=== PATIENT | female | born 1975 | race Asian ===

== ENCOUNTER 2017-01-06 10:26 | Inpatient (IN) | payer SELFPAY ==
[~2017-01-06] VITALS: Ht 160 cm; Wt 64.9 kg
[2017-01-12] MEDS ORDERED: PROMETHAZINE 25 MG/ML VIAL IVP ONE (00:35)
[2017-01-12] MEDS ORDERED: OXYTOCIN 10 UNITS/ML VIAL IM SCH (00:35)
[2017-01-12] MEDS ORDERED: NALBUPHINE 10 MG/ML AMP IVP PRN (00:35)
[2017-01-12] MEDS ORDERED: OXYTOCIN 20 UNITS in LACTATED RINGERS 1,000 ML IV SCH (00:35)
[2017-01-12] MEDS ORDERED: PREN-380 PO (00:47)
[2017-01-12] MEDS ORDERED: LEVO0.155 PO (00:47)
[2017-01-12 00:53] VITALS: BP 152/87
[2017-01-12] MEDS: LACTATED RINGERS 1,000 ML IV SCH ×4 (01:02→15:53)
[2017-01-12 01:20] LABS: APPEARANCE,URINE CLEAR (CLEAR); BILIRUBIN,URINE NEGATIVE (NEGATIVE); BLOOD, URINE NEGATIVE (NEGATIVE); COLOR,URINE YELLOW (YELLOW); LEUKOCYTE ESTERASE ,URINE NEGATIVE (NEGATIVE); NITRITE, URINE NEGATIVE (NEGATIVE); PH,URINE 6.5 (5.0-9.0); UGLUCOSE NEGATIVE (NEGATIVE)
[2017-01-12 01:22] LABS: BASOPHILS # (AUTO) 0.1 K/uL (0.00-0.22); BASOPHILS % (AUTO) 0.9 % (0.0-2.0); EOSINOPHILS # (AUTO) 0.1 K/uL (0-0.4); HEMOGLOBIN 12.8 g/dL (12.0-16.0); LYMPHOCYTES # (AUTO) 2.3 K/uL (2.5-16.5); MEAN CORPUSCULAR HEMOGLOBIN 31 pg (27-31); MEAN CORPUSCULAR HGB CONC 34 g/dL (33-37); MEAN CORPUSCULAR VOLUME 93 fL (80-94); MONOCYTES # (AUTO) 0.4 K/uL (0.8-1.0); MONOCYTES % (AUTO) 4.7 % (1.7-9.3); NEUTROPHILS # (AUTO) 4.9 K/uL (1.8-7.7); NEUTROPHILS % (AUTO) 63.4 % (42.2-75.2); PLATELET COUNT (AUTO) 155 K/uL (140-450); RED BLOOD CELL COUNT(AUTO) 4.07 MIL/uL (4.20-5.40); RED CELL DISTRIBUTION WIDTH 12.9 % (11.6-13.7); WHITE BLOOD COUNT (AUTO) 7.8 K/uL (4.8-10.8)
[2017-01-12] MEDS ORDERED: MISOPROSTOL 25 MCG TAB ONE (01:24)
[2017-01-12 01:31] LABS: RBC,URINE 0-5 (RARE) /HPF (0-5); WBC,URINE 0-5 (RARE) /HPF (0-5)
[2017-01-12] MEDS ORDERED: MISOPROSTOL 25 MCG TAB VG SCH (04:00)
[2017-01-12] MEDS ORDERED: AMPICILLIN 2,000 MG in NACL 0.9% 100 ML IV SCH ×5 (06:35→12:00)
[2017-01-12] MEDS ORDERED: ROPIVACAINE 0.2%/NS PREMIX 250 ML EPI ONE ×2 (08:09→17:13)
[2017-01-12] MEDS ORDERED: AMPICILLIN 2,000 MG VIAL ONE (08:28)
--- NOTE | 2017-01-12 09:40 | NUR ---
PATIENT HAS BEEN SCREENED AND CATEGORIZED LOW NUTRITION RISK. PATIENT WILL BE SEEN WITHIN 7 DAYS OF ADMISSION. 01/18/[address]
[2017-01-12] MEDS ORDERED: ROPIVACAINE 0.2%/NS PREMIX 250 ML EPI SCH (11:00)
[2017-01-12] MEDS ORDERED: AMPICILLIN 1,000 MG VIAL ONE ×2 (13:14→17:04)
[2017-01-12] MEDS: AMPICILLIN 1,000 MG in NACL 0.9% 50 ML IV SCH ×2 (13:18→17:12)
[2017-01-12] MEDS ORDERED: CITRIC ACID/SODIUM CITRATE 30 ML UDC PO SCH (20:30)
[2017-01-12] MEDS ORDERED: ceFAZolin 1,000 MG VIAL ONE ×2 (20:57→21:10)
[2017-01-12] MEDS ORDERED: CITRIC ACID/SODIUM CITRATE 30 ML UDC ONE (21:03)
[2017-01-12] MEDS ORDERED: ONDANSETRON 4 MG/2 ML VIAL ONE (21:10)
[2017-01-12] MEDS ORDERED: ePHEDrine 50 MG/ML VIAL ONE (21:10)
[2017-01-12] MEDS ORDERED: MIDAZOLAM 2 MG/2 ML VIAL ONE (21:30)
[2017-01-12] MEDS ORDERED: fentaNYL 0.05 MG/ML VIAL ONE (21:30)
[2017-01-12] MEDS ORDERED: SODIUM BICARBONATE 8.4% PFS 50 MEQ/50 ML SYR IVP ONE (21:31)
[2017-01-12] MEDS ORDERED: KETAMINE 500 MG/5 ML VIAL ONE (21:31)
[2017-01-12] MEDS ORDERED: MORPHINE PRES FREE 10 MG/10 ML AMP IV ONE (21:31)
[2017-01-12] MEDS ORDERED: TRIAMCINOLONE 10 MG/ML 5ML VIAL ONE (21:33)
[2017-01-12] MEDS ORDERED: OXYTOCIN 10 UNITS/ML VIAL ONE (21:33)
[2017-01-12] MEDS ORDERED: METHYLERGONOVINE 0.2 MG/ML AMP ONE (21:34)
[2017-01-12] MEDS ORDERED: ceFAZolin 1,000 MG VIAL IVP ONE (21:40)
[2017-01-12] MEDS ORDERED: LIDOCAINE/EPI MPF 2%1:200000 10 ML VIAL INJ ONE (21:40)
[2017-01-12] MEDS ORDERED: INFLUENZA VIRUS VACCINE QUAD 0.5 ML SYR IMVAC SCH (22:00)
[2017-01-12] MEDS ORDERED: KETOROLAC 30 MG/ML VIAL IVP PRN (22:05)
[2017-01-12] MEDS ORDERED: diphenhydrAMINE 50 MG/ML VIAL IVP PRN (22:05)
[2017-01-12] MEDS ORDERED: ONDANSETRON 4 MG/2 ML VIAL IVP PRN (22:05)
[2017-01-12] MEDS ORDERED: TRIMETHOBENZAMIDE 200 MG/2 ML SYR IM PRN (22:25)
[2017-01-12] MEDS ORDERED: MEASLES, MUMPS, AND RUBELLA 1 VIAL SQVAC PRN (22:25)
[2017-01-12] MEDS ORDERED: TEMAZEPAM 15 MG CAP PO PRN (22:25)
[2017-01-12] MEDS ORDERED: IBUPROFEN 800 MG TAB PO PRN (22:25)
[2017-01-12] MEDS ORDERED: oxyCODONE/APAP 5/325 MG 1 TAB TAB PO PRN (22:25)
[2017-01-12] MEDS ORDERED: SIMETHICONE 80 MG TAB.CHEW PO PRN (22:25)
[2017-01-12] MEDS ORDERED: METHYLERGONOVINE 0.2 MG/ML AMP IM PRN (22:25)
[2017-01-12] MEDS ORDERED: HYDROcodone/APAP 5/325 MG 1 TAB TAB PO PRN (22:25)
[2017-01-13] MEDS ORDERED: OXYTOCIN 20 UNITS in LACTATED RINGERS 1,000 ML IV SCH (00:35)
[2017-01-13] MEDS: OXYTOCIN 20 UNITS in LACTATED RINGERS 1,000 ML IV SCH ×2 (05:06→13:44)
[2017-01-13] MEDS ORDERED: OXYTOCIN 20 UNITS/LR PREMIX 1,000 ML IV ONE (05:08)
[2017-01-13 05:39] LABS: BASOPHILS # (AUTO) 0.1 K/uL (0.00-0.22); BASOPHILS % (AUTO) 0.6 % (0.0-2.0); EOSINOPHILS # (AUTO) 0.1 K/uL (0-0.4); EOSINOPHILS % (AUTO) 0.8 % (0.0-4.0); HEMATOCRIT 33.1 % (36-48); HEMOGLOBIN 10.9 g/dL (12.0-16.0); LYMPHOCYTES # (AUTO) 1.8 K/uL (2.5-16.5); LYMPHOCYTES % (AUTO) 12.2 % (20.5-51.1); MEAN CORPUSCULAR HEMOGLOBIN 31 pg (27-31); MEAN CORPUSCULAR HGB CONC 33 g/dL (33-37); MEAN CORPUSCULAR VOLUME 94 fL (80-94); MONOCYTES # (AUTO) 0.3 K/uL (0.8-1.0); MONOCYTES % (AUTO) 2.4 % (1.7-9.3); NEUTROPHILS # (AUTO) 12.1 K/uL (1.8-7.7); PLATELET COUNT (AUTO) 109 K/uL (140-450); RED BLOOD CELL COUNT(AUTO) 3.53 MIL/uL (4.20-5.40); RED CELL DISTRIBUTION WIDTH 12.7 % (11.6-13.7); WHITE BLOOD COUNT (AUTO) 14.4 K/uL (4.8-10.8)
[2017-01-13] MEDS ORDERED: OXYTOCIN 10 UNITS/ML VIAL ONE (13:39)
[2017-01-13] MEDS ORDERED: oxyCODONE/APAP 5/325 MG 1 TAB TAB PO PRN (16:00)
[2017-01-13] MEDS ORDERED: IBUPROFEN 800 MG TAB PO PRN (16:00)
[2017-01-13] MEDS: DOCUSATE SOD/SENNA 50/8.6 MG 1 TAB PO SCH (21:03)
[2017-01-14] MEDS: DOCUSATE SOD/SENNA 50/8.6 MG 1 TAB PO SCH (21:00)
== END 2017-01-15 18:15 | disposition home or self-care (01) | DRG 766 ==
LOC: MLD 01-12 00:05 → MFCC 01-13 00:27
PROVIDERS: ADMIT Obstetrics & Gynecology; ATTEND Obstetrics & Gynecology
PROC: 3E0P7VZ Introduction of Hormone into Female Reproductive, Via Natural or Artificial Opening (ICD-10-PCS; 2017-01-12)
PROC: 10D00Z1 Extraction of Products of Conception, Low, Open Approach (ICD-10-PCS; principal; 2017-01-12 21:00)
PROC: 3E0234Z Introduction of Serum, Toxoid and Vaccine into Muscle, Percutaneous Approach (ICD-10-PCS; 2017-01-15)
PROC: 3E0234Z Introduction of Serum, Toxoid and Vaccine into Muscle, Percutaneous Approach (ICD-10-PCS; 2017-01-15)
PROC: 3E0234Z Introduction of Serum, Toxoid and Vaccine into Muscle, Percutaneous Approach (ICD-10-PCS; 2017-01-15)
DX: O62.2 Other uterine inertia (principal); E03.9 Hypothyroidism, unspecified; O99.284 Endocrine, nutritional and metabolic diseases complicating childbirth; O76 Abnormality in fetal heart rate and rhythm complicating labor and delivery; Z37.0 Single live birth; Z3A.40 40 weeks gestation of pregnancy; Z23 Encounter for immunization; Z82.49 Family history of ischemic heart disease and other diseases of the circulatory system
CPT/HCPCS: 36415; 51702; 59200; 81001; 85025; 86592; 86886; 86900; 86901; 90658; 90715; J0290; J0690; J2001; J2210; J2250; J2270; J2405; J2590; J2795; J3010; J3301; J7060; J7120